=== PATIENT | female | born 1980 | race Caucasian/White ===

== ENCOUNTER 2025-02-05 08:38 | Observation (INO) ==
--- NOTE | 2025-02-05 09:54 | DR.URINEF ---
HPI Time Seen Time Seen by Provider: 02/05/25 09:53 PCP Primary Care Physician: ANA BAILEY Complaint Chief Complaint Doctors Comments: 44 yo F, hx hypelipidemia, also hx of recurrent UTI, c/o 2d of dysuria, fever, R flank pain and vomiting. Diagnosed with UTI yest, had Rocephin and bactrim yest, symptoms worse today. Has vomite 4x today. Denies other complaints. Chief Complaint:: Patient states monday she started having bodyaches, right flank pain, fever, chills,vomiting she went to the [facility] yesterday was diagnosed with a UTI was given bactrim ds and given a rocephin shot in office and states she doesnt feel any better she states she feels worse. Self Treatment fo Chief Complaint: tylenol 0600 COVID-19 Coronavirus risk:travel/contact w/high risk person: No Has patient experienced Coronavirus symptoms: No Source History Provided: Patient Mode of Arrival Mode of Arrival: Ambulatory Timing Onset of Chief Complaint: 02/03/25 PMH PMH Past Medical History: Yes Past Medical History: Dyslipidemia Past Surgical History: Yes Surgical History: Past Surgical History Comment: sinus sx, breast reduction Family History History of Family Medical Conditions: Yes Family Medical History: Diabetes Mellitus, Cancer and Hypertension Social History Does patient currently use any type of tobacco product: No Have you used tobacco products in the last 12 months: No Type of Tobacco Use: None Does any household member use tobacco: No Alcohol Use: None Do you use any recreational Drugs:: No Lives With: Family Lives Where: Home Travel Risk Coronavirus risk:travel/contact w/high risk person: No Has patient experienced Coronavirus symptoms: No Infectious screening In the last 2 months have you had wt loss of >10#?: NO Have you had fever, night sweats or hemotysis?: No Have you traveled outside the country in the last 6 months?: No Isolation: Standard ROS Review of Systems Constitutional: Chills and Fever Gastrointestinal/Abdominal: Nausea and Vomiting Genitourinary: Dysuria, Frequency and Pain (R flank) All Other Systems: Reviewed and Negative PE Vital Signs Vitals: Vital Signs Temperature 98.1 F Temperature 98.2 F Pulse Rate [Bilateral Radial] 121 Pulse Rate 122 Respiratory Rate 17 Respiratory Rate 17 Respiratory Rate 17 Blood Pressure [Left Arm] 123/69 Blood Pressure 137/89 O2 Sat by Pulse Oximetry 96 O2 Sat by Pulse Oximetry 99 General Limitations: No Limitations General Appearance: Alert and In No Apparent Distress Eyes Eye exam: Normal Appearance ENT ENT Exam: Normal Exam Neck Neck Exam: Normal Inspection Chest Chest Inspection: Normal Inspection Respiratory Respiratory Exam: Normal Lung Sounds Bilat Respiratory Exam: Bilateral: Clear to Auscultation Cardiovascular Cardiovascular Exam: Regular Rate and Normal Rhythm Abdominal Exam Abdominal Exam: Normal Inspection, Normal Bowel Sounds and Soft Rectal Rectal Exam: Deferred Genitourinary External Exam: Female: Deferred : Speculum Exam (Female): Deferred : Bimanual Exam (female): Deferred Extremities Extremities Exam: Normal Inspection Back Back Exam: Normal Inspection Neurologic Neurological Exam: Alert and Oriented X3 Psychiatric Psychiatric Exam: Normal Affect and Normal Mood Skin Skin Exam: Warm, Dry, Intact and Normal Color ROR Labs Reviewed 02/05/25 10:04 02/05/25 10:04 Laboratory: WBC 26.3 X10^3/uL (3.6-10.0) H 02/05/25 10:04 RBC 4.58 X10^6/uL (3.5-5.4) 02/05/25 10:04 Hgb 14.3 g/dL (12.0-16.0) 02/05/25 10:04 Hct 43.0 % (36.0-47.0) 02/05/25 10:04 MCV 94.0 fL (80.0-100.0) 02/05/25 10:04 MCH 31.2 pg (27.0-34.0) 02/05/25 10:04 MCHC 33.2 g/dL (33.0-35.0) 02/05/25 10:04 RDW 15.4 % (11.6-16.5) 02/05/25 10:04 Plt Count 266 X10^3/uL (150.0-450.0) 02/05/25 10:04 Plt Count Comment Adequate (ADEQUATE) 02/05/25 10:04 MPV 8.2 fL (7.4-11.0) 02/05/25 10:04 Neut % (Auto) 85.0 % (42.0-75.0) H 02/05/25 10:04 Lymph % (Auto) 6.5 % (21.0-51.0) L 02/05/25 10:04 [place] % (Auto) 8.0 % (0.0-13.0) 02/05/25 10:04 Eos % (Auto) 0.1 % (0.9-2.9) L 02/05/25 10:04 Baso % (Auto) 0.4 % (0.2-1.0) 02/05/25 10:04 Neut # (Auto) 22.4 x10^3/uL (2.2-4.8) H 02/05/25 10:04 Lymph # (Auto) 1.7 X10^3/uL (1.3-2.9) 02/05/25 10:04 [place] # (Auto) 2.1 x10^3/uL (0.3-0.8) H 02/05/25 10:04 Eos # (Auto) 0.0 x10^3/uL (0.0-0.2) 02/05/25 10:04 Baso # (Auto) 0.1 X10^3/uL (0.0-0.1) 02/05/25 10:04 Absolute Nucleated RBC 0.0 /100WBC 02/05/25 10:04 Total Counted 100 02/05/25 10:04 Neutrophils % (Manual) 75 % (39-76) 02/05/25 10:04 Band Neutrophils % 8 % (0-10) 02/05/25 10:04 Lymphocytes % (Manual) 12 % (13-43) L 02/05/25 10:04 Monocytes % (Manual) 5 % (4-9) 02/05/25 10:04 Plt Morphology Comment Normal (NORMAL) 02/05/25 10:04 RBC Morphology Normal (NORMAL) 02/05/25 10:04 Sodium 131 mmol/L (136-145) L 02/05/25 10:04 Corrected Sodium 132 mmol/L (136-145) L 02/05/25 10:04 Potassium 3.7 mmol/L (3.5-5.1) 02/05/25 10:04 Chloride 97 mmol/L (98-107) L 02/05/25 10:04 Carbon Dioxide 26.5 mmol/L (21-32) 02/05/25 10:04 BUN 16 mg/dL (7-18) 02/05/25 10:04 Creatinine 1.78 mg/dL (0.55-1.02) H 02/05/25 10:04 Est GFR (MDRD) Af Amer 40 (>60) L 02/05/25 10:04 Est GFR (MDRD) Non-Af 33 (>60) L 02/05/25 10:04 Glucose 124 mg/dL (65-99) H 02/05/25 10:04 Lactic Acid 1.0 mmol/L (0.4-2.0) 02/05/25 12:44 Calcium 9.4 mg/dL (8.5-10.1) 02/05/25 10:04 Corrected Calcium 10.4 mg/dL (8.5-10.1) H 02/05/25 10:04 Total Bilirubin 0.60 mg/dL (0.2-1.0) 02/05/25 10:04 AST 16 Units/L (15-37) 02/05/25 10:04 ALT 26 Units/L (12-78) 02/05/25 10:04 Alkaline Phosphatase 127 Units/L (46-116) H 02/05/25 10:04 Total Protein 9.0 g/dL (6.4-8.2) H 02/05/25 10:04 Albumin 2.8 g/dL (3.4-5.0) L 02/05/25 10:04 Globulin 6.2 g/dL (2.5-4.5) H 02/05/25 10:04 Albumin/Globulin Ratio 0.5 Ratio (1.1-2.1) L 02/05/25 10:04 Lipase 13 Units/L (16-77) L 02/05/25 10:04 HCG, Qual Negative <10 mIU/mL 02/05/25 10:04 Specimen Type Clean catch urine 02/05/25 09:41 Urine Color Yellow (YELLOW) 02/05/25 09:41 Urine Appearance Cloudy (CLEAR) 02/05/25 09:41 Urine pH 6.0 (5.0 - 8.0) 02/05/25 09:41 Ur Specific Pease 1.020 (1.000-1.030) 02/05/25 09:41 Urine Protein 3+ (NEGATIVE) 02/05/25 09:41 Urine Glucose (UA) Negative (NEGATIVE) 02/05/25 09:41 Urine Ketones Negative (NEGATIVE) 02/05/25 09:41 Urine Blood 4+ (NEGATIVE) 02/05/25 09:41 Urine Nitrite Negative (NEGATIVE) 02/05/25 09:41 Urine Bilirubin Negative (NEGATIVE) 02/05/25 09:41 Urine Urobilinogen 1+ (NORMAL) 02/05/25 09:41 Ur Leukocyte Esterase 3+ (NEGATIVE) 02/05/25 09:41 Urine RBC 0-2 /HPF (0-3) 02/05/25 09:41 Urine WBC 30-50 /HPF (0-5) A 02/05/25 09:41 Ur Squamous Epith Cells Numerous /HPF (NEGATIVE) 02/05/25 09:41 Urine Bacteria 2+ /HPF (NEGATIVE) 02/05/25 09:41 Ur Culture Indicated? No/not indicated 02/05/25 09:41 Opioid Opioid Risk Tool Age (Bandar box if 16-45): Yes History of Preadolescent Sexual Abuse: No Total: 1 Total Score Risk Category: Low Risk Copyright: Jonathan SAEED predicting aberrant behaviors Discharge Plan Diagnosis Discharge Problem: Sepsis secondary to UTI, Pyelonephritis Discharge Plan Patient Disposition: 01 HOME, SELF-CARE Condition: Stable Prescriptions: No Action sulfamethoxazole-trimethoprim 800-160 mg tablet 1 tab PO BID 10 Days Qty: 20 0RF rosuvastatin 10 mg tablet 10 mg PO QPM Health Concerns: Post Hospitalization: new medications and changes needed to prevent readmission or further decline. Pt educated and given instructions on all concerns. Plan of Treatment: Continue with present treatment and follow up plan. Pt is to keep follow up appointment as instructed and take medications as ordered. Orders to Discharge Patient Discharge Orders: Transfer (Routine); Ordered 02/05/25 Ordered By: Aiden Bradley Follow ups/Referrals Follow ups/Referrals: VERNA BAILEY [Primary Care Provider, Unknown] - 3 days Instructions Stand Alone Forms: Find Help Web Site, Post Hospital Follow Up Care Print Language: YORUBA
[2025-02-05 10:03] LABS: BLOOD/HEMOGLOBIN,URINE 4+ (NEGATIVE); LEUKOCYTE ESTERASE ,URINE 3+ (NEGATIVE); NITRITES,URINE NEGATIVE (NEGATIVE)
[2025-02-05 10:04] LABS: APPEARANCE,URINE CLOUDY (CLEAR)
[2025-02-05 10:13] LABS: MEAN PLATELET VOLUME 8.2 fL (7.4-11.0); RED CELL DISTRIBUTION WIDTH 15.4 % (11.6-16.5)
[2025-02-05] MEDS: NS 1,000 ML IV 1,000 ML IV ONE ×2 (10:20→14:07)
[2025-02-05] MEDS: MORPHINE SULFATE INJ 4 MG IVP ONE (10:20)
[2025-02-05] MEDS: ZOFRAN INJ 4 MG VIAL IVP ONE (10:21)
[2025-02-05 10:26] LABS: BAND NEUTROPHILS % 8 % (0-10); PLATELET MORPHOLOGY COMMENT NORMAL (NORMAL)
[2025-02-05 10:28] LABS: SQUAMOUS EPITHELIAL CELL,UR NUMEROUS /HPF (NEGATIVE)
[2025-02-05 10:28] LABS: COR CA(FOR HYPOALB) 10.4 mg/dL (8.5-10.1); COR NA(FOR HYPERGLY) 132.0 mmol/L (136-145); CREATININE 1.78 mg/dL (0.55-1.02); eGFR NON BLACK RACES 33.0 (>60)
[2025-02-05 10:29] LABS: SERUM PREGNANCY TEST, QUAL NEGATIVE <10 mIU/mL
[2025-02-05] MEDS: ROCEPHIN VIAL 1 GRAM IV SCH (10:38)
[2025-02-05] MEDS ORDERED: OMNIPAQUE 350 mg/mL 100 mL BTL 100 ML ONE (11:34)
--- NOTE | 2025-02-05 12:13 | CT ---
EXAMINATION: ABDCMEN/PELVIS WITH CON HISTORY: R flank pain; . COMPARISON: None. TECHNIQUE: Postcontrast CT abdomen and pelvis was performed.. Reformatted images were obtained as well. Lack of oral contrast limits diagnostic sensitivity The above CT scan was done with automated exposure control and the mA and kV was adjusted to obtain quality images according to patient size. FINDINGS: Lung bases: No acute findings. Liver: Fatty liver. No acute finding or focal lesion GB/Biliary: No gallstones or dilated ducts Spleen: Normal size and density Pancreas: No acute findings. No pseudocyst or dilated duct Adrenal Glands: No mass Kidneys: No obstructing stone, hydronephrosis or solid lesion. Enlarged right kidney with extensive perinephric stranding and heterogeneous appearance could represent pyelonephritis. Correlate with urinalysis. Abdominal aorta: Tapers and enhances normally. Mesenteric vessels are patent Retroperitoneum: No pathologically enlarged lymph nodes Bowel: No thickened or dilated loops of bowel, free fluid, free air, pneumatosis or abscess. Moderate stool. Simple diverticula. Appendix not seen. No CT evidence for appendicitis, diverticulitis or obstruction. Submucosal fat deposition in the right colon may represent chronic inflammatory process. Bladder/: Ureters and bladder unremarkable. Gas is present along the cervix. Follicles in the ovaries. No pelvic or adnexal mass Osseous: Degenerative changes in the thoracolumbar spine. No acute findings or bony lesions. IMPRESSION: No CT evidence for obstructing renal stone. Heterogeneous right kidney with extensive perinephric stranding may represent pyelonephritis. Correlate with lab work and urinalysis No CT evidence for appendicitis, diverticulitis or obstruction. Appendix not definitely visualized. THIS IS AN ELECTRONICALLY VERIFIED FINAL REPORT 02/05/2025 12:09 PM - Electronically signed by Reed Oglesby MD
[2025-02-05] MEDS ORDERED: ULTRAM PO PRN (13:43)
[2025-02-05] MEDS ORDERED: ZOFRAN INJ 4 MG VIAL IVP PRN (13:43)
[2025-02-05] MEDS ORDERED: CONSULT PHARMACY - POTASSIUM & MAGNESIUM XX SCH (14:00)
[2025-02-05 14:45] VITALS: BMI 48.0
[2025-02-05] MEDS: NS 1,000 ML IV 1,000 ML IV SCH (15:14)
[2025-02-05] MEDS: KLOR-CON 10 MEQ TAB PO NR (15:15)
[2025-02-05] MEDS: NORCO 5/325 MG TAB PO PRN (17:59)
[2025-02-05] MEDS: MORPHINE SULFATE INJ 2 MG INJ IVP PRN (19:16)
[2025-02-05] MEDS: CRESTOR TAB 10 MG PO SCH (21:06)
[2025-02-06 04:38] LABS: MEAN PLATELET VOLUME 8.5 fL (7.4-11.0); RED CELL DISTRIBUTION WIDTH 15.1 % (11.6-16.5)
[2025-02-06 04:54] LABS: COR CA(FOR HYPOALB) 9.7 mg/dL (8.5-10.1); COR NA(FOR HYPERGLY) 134 mmol/L (136-145); CREATININE 1.23 mg/dL (0.55-1.02); eGFR NON BLACK RACES 51 (>60)
[2025-02-06] MEDS ORDERED: CONSULT PHARMACY - POTASSIUM & MAGNESIUM XX SCH (06:00)
[2025-02-06] MEDS: MAG-OX TAB PO SCH (09:07)
[2025-02-06] MEDS: K-DUR TAB 20 MEQ PO SCH (09:08)
[2025-02-07 00:03] VITALS: RESP 18
[2025-02-07] MEDS: TYLENOL 325 MG TAB PO PRN (02:15)
[2025-02-07 05:11] LABS: MEAN PLATELET VOLUME 8.7 fL (7.4-11.0); RED CELL DISTRIBUTION WIDTH 15.2 % (11.6-16.5)
[2025-02-07 05:20] LABS: COR NA(FOR HYPERGLY) 140 mmol/L (136-145); CREATININE 1.06 mg/dL (0.55-1.02); eGFR NON BLACK RACES > 60 (>60)
[2025-02-07 05:24] LABS: COR CA(FOR HYPOALB) 9.9 mg/dL (8.5-10.1)
[2025-02-07] MEDS ORDERED: CONSULT PHARMACY - POTASSIUM & MAGNESIUM XX SCH (06:00)
[2025-02-07] MEDS: K-DUR TAB 20 MEQ PO ONE (08:38)
[2025-02-07 09:10] VITALS: BP 109/61; PULSE 85; TEMP 97.9; O2SAT 95
== END 2025-02-07 13:30 | disposition home or self-care (01) ==
LOC: ER 08:38 → MED/SURG 08:38
PROVIDERS: ADMIT Obstetrics & Gynecology Obstetrics; ATTEND Obstetrics & Gynecology Obstetrics
DX: N10 Acute pyelonephritis; A41.9 Sepsis, unspecified organism; E78.00 Pure hypercholesterolemia, unspecified; D64.9 Anemia, unspecified; E87.6 Hypokalemia; R73.9 Hyperglycemia, unspecified; Z87.440 Personal history of urinary (tract) infections; E87.1 Hypo-osmolality and hyponatremia; E86.0 Dehydration; E78.5 Hyperlipidemia, unspecified; B37.89 Other sites of candidiasis; R10.84 Generalized abdominal pain; E83.42 Hypomagnesemia